=== PATIENT | male | born 1990 | race Caucasian/White ===

== ENCOUNTER 2025-07-16 13:47 | Emergency (ER) | payer BC ==
[2025-07-16 14:37] LABS: BASOPHILS ABSOLUTE AUTO 0.04 K/uL (0.00-0.10); BASOPHILS PERCENT AUTO 0.8 % (0.1-1.3); EOSINOPHILS ABSOLUTE AUTO 0.11 K/uL (0.00-0.40); EOSINOPHILS PERCENT AUTO 2.1 % (0.0-5.4); IMMATURE GRAN PERCENT AUTO 0.2 % (0.0-0.7); LYMPHOCYTES ABSOLUTE AUTO 1.46 K/uL (0.8-3.3); LYMPHOCYTES PERCENT AUTO 27.9 % (11.4-47.7); MONOCYTES ABSOLUTE AUTO 0.47 K/uL (0.20-0.90); MONOCYTES PERCENT AUTO 9.0 % (3.3-12.6); NEUTROPHILS ABSOLUTE AUTO 3.15 K/uL (1.0-7.6); NEUTROPHILS PERCENT AUTO 60.0 % (40.0-78.1); PLATELET COUNT,PLT 532 K/uL (130-375); RED BLOOD CELL COUNT 3.50 M/uL (4.14-5.76); WHITE BLOOD CELL COUNT,WBC 5.2 K/uL (3.2-11.0)
[2025-07-16 14:45] LABS: IMMATURE GRAN ABSOLUTE AUTO 0.01 K/uL (0.00-0.23)
[2025-07-16 14:54] LABS: INR 1.0
[2025-07-16 14:58] LABS: A/G RATIO 1.0 (1.2-2.2); ALANINE AMINOTRANSFERASE,ALT 16 U/L (12-78); ASPARTATE AMNIOTRANSFERASE,AST 11 U/L (15-37); BILIRUBIN TOTAL 0.3 mg/dL (0.2-1.0); BLOOD UREA NITROGEN,BUN 9 mg/dL (7-18); CARBON DIOXIDE,CO2 28 mmol/L (21-32); CHLORIDE,CL 101 mmol/L (100-108); CREATININE 1.0 mg/dL (0.8-1.3); EST CRCL DRUG DOSING (CG) 117.63 mL/min; ESTIMATED GFR 101 mL/min (>60); GLUCOSE RANDOM 99 mg/dL (74-106); POTASSIUM,K 4.0 mmol/L (3.6-5.2); PROTEIN TOTAL,TP 7.2 g/dL (6.4-8.2); SODIUM,NA 137 mmol/L (140-148)
[2025-07-16] MEDS: Sodium Chloride 0.9% 10 ML Syringe FLUSH PRN (15:11)
[2025-07-16] MEDS: Iopamidol 612 MG/ML 100 ML Bottle IV PRN (15:11)
== END 2025-07-16 17:15 ==
LOC: JP.ED 13:47
DX: D50.0 Iron deficiency anemia secondary to blood loss (chronic) (principal); K51.811 Other ulcerative colitis with rectal bleeding; K92.2 Gastrointestinal hemorrhage, unspecified; E86.0 Dehydration; Z79.899 Other long term (current) drug therapy
CPT/HCPCS: 36415; 74177; 80053; 83605; 85025; 85610; 85651; 86140; 86850; 86900; 86901; 96360; 96361; 99285; J7030; Q9967